=== PATIENT | male | born 1960 | race Caucasian/White ===

== ENCOUNTER → 2018-02-12 | Outpatient (REF) | payer OTHER ==
[~2018-02-12] MED LIST: COLCHICINE PO; LEVEMIR1000 UNITS SC; LISINOPRIL20 MG PO; LOPID600 MG PO; METFORMIN1000 MG PO; OMEGA-3 FISH1000 MG PO
[2018-02-12 12:48] LABS: URINE BILIRUBIN - DIPSTICK NEGATIVE (NEGATIVE); URINE BLOOD DIPSTICK MODERATE (NEGATIVE); URINE COLOR YELLOW; URINE GLUCOSE - DIPSTICK NEGATIVE (NEGATIVE); URINE KETONE NEGATIVE (NEGATIVE); URINE LEUK ESTERASE NEGATIVE (NEGATIVE); URINE NITRITE - DIPSTICK NEGATIVE (Negative); URINE PH 5.5 (4.5-8.0); URINE PROTEIN - DIPSTICK NEGATIVE (NEG-TRACE); URINE SPECIFIC GRAVITY 1.025; URINE UROBILINOGEN - DIPSTICK 0.2 E.U./dL (0.2)
[2018-02-12 12:54] LABS: URINE CLARITY CLEAR
[2018-02-12 12:55] LABS: ALBUMIN 3.8 g/dL (3.2-5.0); ALKALINE PHOSPHATASE 191 u/l (38-126); BILIRUBIN, TOTAL 1.6 mg/dL (0.0-1.4); BUN 15 mg/dL (9-20); BUN/CREATININE RATIO 20 (12-20 (CALC)); CARBON DIOXIDE 21 mmol/l (22-30); CHOLESTEROL HDL RATIO 6.6 (<4.4 (CALC)); CREATININE 0.7 mg/dL (0.7-1.3); GFR > 60 ML/MIN (>=60 (CALC)); GFR FOR AFR.AMER. > 60 ML/MIN (>=60 (CALC)); HDL CHOLESTEROL 27 mg/dL (>=40); POTASSIUM 4.1 mmol/l (3.5-5.1); SGOT/AST 43 u/l (17-59); TOTAL CHOLESTEROL 177 mg/dl (0-199)
[2018-02-12 12:58] LABS: URINE SQUAMOUS EPITHELIAL CELL FEW EPI/hpf (0-FEW); URINE WBC 0-2 WBC/hpf (0-5)
[2018-02-12 13:03] LABS: VLDL CHOLESTROL 135 mg/dl (8-62 (CALC))
[2018-02-12 13:04] LABS: ANION GAP 14 (6-22 (CALC)); CALCULATED LDLCHOLESTEROL 15 mg/dL (62-129 (CALC)); CHLORIDE 110 mmol/l (95-108); SODIUM 141 mmol/l (137-146); TOTAL TRIGLYCERIDES 675 mg/dl (30-149)
[2018-02-12 13:35] LABS: HEMATOCRIT 33.8 % (39.0-50.0); HEMOGLOBIN 11.1 g/dl (14.0-18.0); IMMATURE GRANULOCYTES 0.5 % (0.0-5.0); MEAN CELL VOLUME 88.5 fL CALC (80.0-100.0); MEAN CORPUSCULAR HGB 29.1 pG CALC (26.0-32.0); MEAN CORPUSCULAR HGB CONC 32.8 g/L CALC (32.0-36.0); NEUT# 1.13 thou/uL (1.82-7.42); RED BLOOD COUNT 3.82 mill/uL (4.70-6.10); RED CELL DISTRI WIDTH 15.5 % (11.5-15.5)
== END | disposition home or self-care (01) | DRG 639 ==
LOC: LAB 11:39
PROVIDERS: ATTEND Internal Medicine
DX: E11.65 Type 2 diabetes mellitus with hyperglycemia (principal); E11.69 Type 2 diabetes mellitus with other specified complication; I10 Essential (primary) hypertension; Z79.4 Long term (current) use of insulin

== ENCOUNTER 2020-11-17 05:59 | Emergency (ER) | payer OTHER ==
[~2020-11-17] VITALS: Ht 165.1 cm; Wt 109.0 kg
[2020-11-17] MEDS ORDERED: NADOLOL20 MG PO (06:42)
[2020-11-17] MEDS ORDERED: SPIRONOLACT25 MG PO (06:42)
[2020-11-17] MEDS ORDERED: FUROSEMIDE20 MG PO (06:43)
[2020-11-17 07:27] LABS: URINE BILIRUBIN - DIPSTICK NEGATIVE (NEGATIVE); URINE BLOOD DIPSTICK NEGATIVE (NEGATIVE); URINE COLOR YELLOW; URINE GLUCOSE - DIPSTICK >=1000 mg/dL (NEGATIVE); URINE KETONE NEGATIVE (NEGATIVE); URINE LEUK ESTERASE NEGATIVE (NEGATIVE); URINE PH 5.5 (4.5-8.0); URINE PROTEIN - DIPSTICK NEGATIVE (NEG-TRACE); URINE SPECIFIC GRAVITY 1.015; URINE UROBILINOGEN - DIPSTICK 0.2 E.U./dL (0.2)
[2020-11-17 07:28] LABS: URINE NITRITE - DIPSTICK NEGATIVE (Negative)
[2020-11-17 07:30] LABS: HEMATOCRIT 30.1 % (39.0-50.0); HEMOGLOBIN 10.8 g/dl (14.0-18.0); IMMATURE GRANULOCYTES 0.8 % (0.0-5.0); MEAN CORPUSCULAR HGB 30.9 pG CALC (26.0-32.0); MEAN CORPUSCULAR HGB CONC 35.9 g/dL CAL (32.0-36.0); NEUT# 1.49 thou/uL (1.82-7.42); RED BLOOD COUNT 3.49 mill/uL (4.70-6.10); RED CELL DISTRI WIDTH 14.7 % (11.5-15.5)
[2020-11-17 07:33] LABS: MEAN CELL VOLUME 86.2 fL CALC (80.0-100.0)
[2020-11-17 07:47] LABS: ALBUMIN 4.1 g/dL (3.2-5.0); BILIRUBIN, TOTAL 2.9 mg/dL (0.0-1.4); BUN 31 mg/dL (9-20); BUN/CREATININE RATIO 27 (12-20 (CALC)); CARBON DIOXIDE 19 mmol/l (22-30); CHLORIDE 101 mmol/l (95-108); CREATININE 1.2 mg/dL (0.7-1.3); GFR > 60 ML/MIN (>=60 (CALC)); GFR FOR AFR.AMER. > 60 ML/MIN (>=60 (CALC)); POTASSIUM 4.4 mmol/l (3.5-5.1); SGOT/AST 41 u/l (17-59); TOTAL PROTEIN 8.8 g/dL (6.3-8.2)
[2020-11-17 07:51] LABS: ALKALINE PHOSPHATASE 175 u/l (38-126); ANION GAP 16 (6-22 (CALC)); SODIUM 132 mmol/l (137-146)
[2020-11-17 08:01] LABS: MYOGLOBIN 28 ng/mL (0 - 121)
[2020-11-17 10:42] VITALS: BP 133/61
== END 2020-11-17 10:51 | disposition home or self-care (01) | DRG 638 ==
LOC: ED 05:59
PROVIDERS: Family Medicine
DX: E11.65 Type 2 diabetes mellitus with hyperglycemia (principal); D61.818 Other pancytopenia; I10 Essential (primary) hypertension; K74.60 Unspecified cirrhosis of liver; T38.3X6A Underdosing of insulin and oral hypoglycemic [antidiabetic] drugs, initial encounter; Z91.128 Patient's intentional underdosing of medication regimen for other reason; Z91.11 Patient's noncompliance with dietary regimen

== ENCOUNTER 2021-11-21 08:01 | Emergency (ER) | payer OTHER ==
[~2021-11-21] VITALS: Ht 165.1 cm; Wt 109.1 kg
[2021-11-21] VITALS (7 sets, daily range): BP systolic 88–134; BP diastolic 51–63
[~2021-11-21 08:01] MED LIST changes: +FUROSEMIDE20 MG PO; +NADOLOL20 MG PO; +SPIRONOLACT25 MG PO
[2021-11-21] MEDS ORDERED: ZESTRIL10 M1 PO (08:21)
[2021-11-21] MEDS ORDERED: KAZANO1000 MG PO (08:21)
[2021-11-21] MEDS ORDERED: LEVEMIR FL100 UNIT/M SC (08:22)
[2021-11-21 08:54] LABS: ALBUMIN 3.9 g/dL (3.2-5.0); ALKALINE PHOSPHATASE 159 u/l (38-126); BILIRUBIN, TOTAL 2.7 mg/dL (0.0-1.4); BUN 35 mg/dL (9-20); BUN/CREATININE RATIO 21 (12-20 (CALC)); CREATININE 1.7 mg/dL (0.7-1.3); GFR FOR AFR.AMER. 50 ML/MIN (>=60 (CALC)); GFR OTHER RACES 41 ML/MIN (>=60 (CALC)); HEMATOCRIT 27.1 % (39.0-50.0); HEMOGLOBIN 9.1 g/dl (14.0-18.0); IMMATURE GRANULOCYTES 1.4 % (0.0-5.0); MEAN CORPUSCULAR HGB 32.4 pG CALC (26.0-32.0); MEAN CORPUSCULAR HGB CONC 33.6 g/dL CAL (32.0-36.0); NEUT# 2.04 thou/uL (1.82-7.42); POTASSIUM 4.3 mmol/l (3.5-5.1); RED BLOOD COUNT 2.81 mill/uL (4.70-6.10); RED CELL DISTRI WIDTH 15.3 % (11.5-15.5); SGOT/AST 52 u/l (17-59); TOTAL PROTEIN 8.1 g/dL (6.3-8.2)
[2021-11-21 08:59] LABS: ANION GAP 12 (6-22 (CALC)); CARBON DIOXIDE 14 mmol/l (22-30); CHLORIDE 117 mmol/l (95-108); SODIUM 139 mmol/l (137-146)
[2021-11-21 09:01] LABS: MEAN CELL VOLUME 96.4 fL CALC (80.0-100.0)
[2021-11-21 10:22] LABS: URINE BILIRUBIN - DIPSTICK NEGATIVE (NEGATIVE); URINE BLOOD DIPSTICK NEGATIVE (NEGATIVE); URINE COLOR YELLOW; URINE GLUCOSE - DIPSTICK NEGATIVE (NEGATIVE); URINE KETONE NEGATIVE (NEGATIVE); URINE LEUK ESTERASE NEGATIVE (NEGATIVE); URINE PH 5.5 (4.5-8.0); URINE PROTEIN - DIPSTICK NEGATIVE (NEG-TRACE); URINE UROBILINOGEN - DIPSTICK 0.2 E.U./dL (0.2)
[2021-11-21 10:25] LABS: URINE NITRITE - DIPSTICK NEGATIVE (Negative)
== END 2021-11-21 11:13 | disposition home or self-care (01) | DRG 812 ==
LOC: ED 08:01
PROVIDERS: Family Medicine
DX: D64.9 Anemia, unspecified (principal); D72.819 Decreased white blood cell count, unspecified; I10 Essential (primary) hypertension; E11.9 Type 2 diabetes mellitus without complications; K76.9 Liver disease, unspecified; E66.9 Obesity, unspecified; M10.9 Gout, unspecified; Z79.4 Long term (current) use of insulin; Z20.822 Contact with and (suspected) exposure to COVID-19

== ENCOUNTER 2022-04-25 12:07 | Emergency (ER) | payer OTHER ==
[2022-04-25] VITALS (13 sets, daily range): BP systolic 99–158; BP diastolic 49–76
[~2022-04-25] VITALS: Ht 165.1 cm; Wt 120.0 kg
[~2022-04-25 12:07] MED LIST changes: +KAZANO1000 MG PO; +LEVEMIR FL100 UNIT/M SC; +ZESTRIL10 M1 PO
[2022-04-25 13:08] LABS: BASO% 0.7 % (0-3); EOS% 5.8 % (0-8); HEMATOCRIT 23.3 % (39.0-50.0); HEMOGLOBIN 7.5 g/dl (14.0-18.0); IMMATURE GRANULOCYTES 0.7 % (0.0-5.0); LYMPH% 19.3 % (15-41); MEAN CELL VOLUME 96.3 fL CALC (80.0-100.0); MEAN CORPUSCULAR HGB CONC 32.2 g/dL CAL (32.0-36.0); NEUT# 1.79 thou/uL (1.82-7.42); NEUT% 65.5 % (42-76); RED BLOOD COUNT 2.42 mill/uL (4.70-6.10); RED CELL DISTRI WIDTH 16.7 % (11.5-15.5)
[2022-04-25 13:24] LABS: ALBUMIN 3.2 g/dL (3.2-5.0); BILIRUBIN, TOTAL 3.1 mg/dL (0.0-1.4); CREATININE 2.1 mg/dL (0.7-1.3); INTERNATIONAL NORMALIZED RATIO 1.3 RATIO (0.7-1.3); POTASSIUM 4.6 mmol/l (3.5-5.1); PROTHROMBIN TIME 12.6 SECONDS (9.0-12.5); TOTAL PROTEIN 7.5 g/dL (6.3-8.2)
== END 2022-04-25 17:03 | disposition home or self-care (01) | DRG 948 ==
LOC: ED 12:07
PROVIDERS: Family Medicine
DX: R18.8 Other ascites (principal); E11.9 Type 2 diabetes mellitus without complications; I10 Essential (primary) hypertension; M10.9 Gout, unspecified; Z79.4 Long term (current) use of insulin
CPT/HCPCS: P9047